=== PATIENT | male | born 1955 | race Caucasian/White ===

== ENCOUNTER 2019-08-06 09:55 | Outpatient (CLI) | payer OTHER, SELFPAY ==
--- NOTE | ~2019-08-06 | XR_ITS ---
XR shoulder LT min 2V 08/06/2019 10:37 Indication: Left shoulder pain Procedure: 4 views left shoulder Comparison: No prior studies for comparison. Findings: No fracture or traumatic malalignment. No significant soft tissue abnormality. No radiopaqu e foreign bodies. No significant joint space narrowing. Impression: 1: No acute bone or joint abnormality. Reviewed, dictated and finalized at location A. Impression: 1: No acute bone or joint abnormality.
--- NOTE | ~2019-08-06 | XR_ITS ---
XR hand RT min 3V, XR wrist RT min 3V 08/06/2019 10:38 Indication: Ganglion cyst of the right wrist Procedure: 3 views right hand and 4 views right wrist Comparison: No prior studies for comparison. Findings: There is mild-moderate polyarticular osteoarthritis. No fracture or traumatic malalignment. No significant erosive changes. Vascular calcifications are present. No foreign bodies. Impression: 1: Mild-moderate polyarticular osteoarthritis. Reviewed, dictated and finalized at location A. Impression: 1: Mild-moderate polyarticular osteoarthritis. Impression: 1: Mild-moderate polyarticular osteoarthritis.
== END 2019-08-06 09:56 | disposition home or self-care (01) ==
LOC: ANHIMG 10:02
PROVIDERS: PCP Family Medicine; Visit Provider Family Medicine
DX: M25.512 Pain in left shoulder (principal); M19.041 Primary osteoarthritis, right hand
CPT/HCPCS: 73030; 73110; 73130

== ENCOUNTER 2024-01-01 07:28 | Inpatient (IN) | payer MEDICARE, SELFPAY ==
[2024-01-01] VITALS (11 sets, daily range): BP systolic 121–170; BP diastolic 67–99; PULSE 89–99; RESP 14–20; TEMP 36.6–36.7; O2SAT 96–100; BMI 29.1
--- NOTE | ~2024-01-01 | US_ITS ---
Limited ABDOMINAL ULTRASOUND Ordering provider: John aNthan MD History: . Pancreatitis . Comparison: None. FINDINGS: LIVER: Normal size. Increased echogenicity with fat infiltration is noted. No focal hepatic lesions o r perihepatic fluid collections are identified. Cyst is seen in the right lobe measuring 3 x 2.7 x 3. 3 cm. Another cystic lesion is seen inferior to the previous one which measures 2.7 x 2.5 x 2.3 cm. T he possibility that this cyst to be renal is less likely. Portal vein flow is normal. GALLBLADDER: Unremarkable. No evidence for stones, sludge, gallbladder wall thickening or pericholecy stic fluid collections. Wall thickness is 0.4 cm. A negative sonographic Zarate's sign was noted. BILIARY DUCTS: No evidence for intra or extrahepatic biliary dilation. Common bile duct measures 5 mm in diameter which is within normal limits. PANCREAS: Not well demonstrated. . UPPER ABDOMINAL AORTA: Normal in caliber. Proximal aorta measures 1.7 cm. IVC: Patent. FREE FLUID: None. IMPRESSION: Hepatic cysts. Fat infiltration of the liver. Reviewed, dictated and finalized at location A.
--- NOTE | ~2024-01-01 | CT_ITS ---
EXAMINATION: CT abdomen pelvis wo con DATE: 01/01/2024 08:33 INDICATION: Central abdominal pain. TECHNIQUE: Computed tomography (CT) of the abdomen and pelvis was performed without intravenous contr ast. Automated exposure control and iterative reconstruction technique were employed. The dose-length product was 733.50 mGy-cm. COMPARISON: None. FINDINGS: The visualized portions of the lung bases demonstrate mild atelectasis. No pleural effusion . The heart size is normal. There are coronary artery calcifications. No pericardial effusion. There is a small sliding hiatal hernia. There are cysts in the liver measuring up to 3.7 cm. The gallbladde r and spleen are normal. There are calcifications in the pancreas, consistent with chronic pancreatit is. There is fat stranding and fluid around the pancreas, consistent with acute pancreatitis. The adr enal glands and left kidney are normal. There is an 8 mm cyst in right kidney. The prostate is mildly enlarged. There are no dilated loops of bowel. The appendix is normal. There is calcified atheroscle rosis of the aorta and many of the other arteries. There are no pathologically enlarged lymph nodes. There is no free intraperitoneal fluid. There is severe lower lumbar spondylosis. IMPRESSION: 1. Acute interstitial pancreatitis superimposed on chronic pancreatitis. Reviewed, dictated and finalized at location A.
[2024-01-01 07:52] LABS: Basophils Absolute Auto 0.1 K/mm3 (0.0-0.1); Basophils Percent Auto 0.5 % (0.2-1.2); Eosinophils Absolute Auto 0.3 K/mm3 (0-0.3); Eosinophils Percent Auto 2.4 % (0-4.4); Hemoglobin 16.4 g/dL (14.0-18.0); Immature Granulocyte Percent A 0.9 % (0-0.5); Lymphocytes Absolute Auto 1.92 K/mm3 (0.9-3.2); Lymphocytes Percent Auto 16.9 % (18.3-44.2); Mean Corpuscular HGB Conc 32.8 g/dl (32-36); Mean Corpuscular Hemoglobin 29.7 pg (26-34); Mean Corpuscular Volume 90.6 fl (80-100); Mean Platelet Volume 9.2 fl (7.4-10.4); Monocytes Absolute Auto 0.9 K/mm3 (0.1-0.6); Monocytes Percent Auto 7.8 % (2.6-8.5); Neutrophils Absolute Auto 8.1 K/mm3 (1.3-6.7); Neutrophils Percent Auto 71.5 % (45.5-73.1); Platelet Count Result 318 k/mm3 (150-375); Red Blood Count 5.52 M/mm3 (4.6-6.20); Red Cell Distribution Width 13.8 % (11.5-14.5); White Blood Count 11.3 K/mm3 (4.5-10.0)
[2024-01-01 08:04] LABS: Alanine Aminotransferase 6 U/L (6-50); Albumin Level 4.6 g/dL (3.5-5.1); Alkaline Phosphatase 76 U/L (38-126); Anion Gap 10 mmol/L (4-12); Aspartate Amino Transferase 23 U/L (17-59); Bilirubin,Total 0.6 mg/dL (0.2-1.3); Blood Urea Nitrogen 18 mg/dL (9-20); Calcium 9.3 mg/dL (8.4-10.2); Carbon Dioxide 28 mmol/L (22-30); Chloride 97 mmol/L (98-107); Estimated CRCL calculation 66 ml/min; Estimated Glomerular Filt Rate > 60; Glucose 142 mg/dL (65-110); Potassium 4.5 mmol/L (3.4-5.0); Sodium 135 mmol/L (137-145)
[2024-01-01 08:08] LABS: Add Urine Microscopic? YES; Appearance Urine Clear (Clear); Bacteria Urine None Seen /hpf; Bilirubin Urine Negative (Negative); Blood Urine Negative (Negative); Color Urine Yellow (Yellow); Glucose Urine UA Negative (Negative); Ketones Urine Trace mg/dL (Negative); Leukocyte Esterase Ur Negative LEU/UL (Negative); Nitrate Urine Negative (Negative); Non Pathogenic Casts 0-2; Protein Urine Trace mg/dL (Negative); RBC Urine 0-2 /hpf (0-2); Specific Grav Ur 1.021 (1.001-1.035); Squamous Epithelial Cell Urine None Seen /hpf (Few); WBC Urine 0-5 /hpf (0-3); pH Urine 5.5 (5.0-9.0)
--- NOTE | 2024-01-01 08:09 | ECG_ITS ---
Test Date: 2024-01-01 08:48:25 Measurements Intervals [place] Rate: 93 P: 43 NE: 207 QRS: -79 QRSD: 149 T: 19 QT: 372 QTc: 465 Interpretive Statements SINUS RHYTHM BORDERLINE AV CONDUCTION DELAY RIGHT BUNDLE BRANCH BLOCK LEFT ANTERIOR FASCICULAR BLOCK BASELINE ARTIFACT- I, III, AVR, AVL ABNORMAL ECG No previous ECG available for comparison Electronically Signed On 01-01-2024 09:31:41 CDT by Floyd Mondragon D.O.
[2024-01-01] MEDS: ONDANSETRON INJ 4 MG/2 ML VIAL IV PUSH ×3 (08:20→21:28)
[2024-01-01] MEDS: FAMOTIDINE 20 MG/2 ML VIAL IV PUSH (08:20)
[2024-01-01] MEDS: HYDROmorphone HCL INJ (*CRX) 1 MG/ML SYR IV PUSH (08:20)
[2024-01-01] MEDS: SODIUM CHLORIDE 0.9% IV 2,500 ML 999 ML IV CONT (08:26)
[2024-01-01 08:38] LABS: Lactic Acid Reflex 1.7 mmol/L (0.7-2.0)
[2024-01-01 08:45] LABS: Lipase 24150 U/L (23-300)
[2024-01-01] MEDS: KETOROLAC 15 MG/ML VIAL (*BKC) IV PUSH (09:48)
[2024-01-01] MEDS: HYDROmorphone HCL INJ (*CRX) 1 MG/ML SYR 0.5 MG IV PUSH ×3 (09:48→21:31)
[2024-01-01] MEDS: ACETAMINOPHEN 500 MG TABLET 1000 MG PO (09:49)
--- NOTE | 2024-01-01 11:46 | ED.GENADULT ---
HPI - General Adult General Chief complaint: Abdominal Pain Stated complaint: abd pain Time Seen by Provider: 01/01/24 07:38 History of Present Illness HPI narrative: This is a 68-year-old male with history of Parkinson's and pancreatitis presenting for abdominal pain. Patient states the pain started at 2:00 a.m.. Stabbing pain in the center of his abdomen is nonradiating 9.5 in intensity constant. Says he has never experienced pain like this before. No exacerbating alleviating factors. He denies fevers chills nausea vomiting or diarrhea. Last bowel movement was yesterday. No urinary symptoms. Related Data Home Medications Medication Instructions Recorded Confirmed meloxicam 15 mg tablet 15 mg PO DAILY 09/30/20 01/31/23 Allergies Allergy/AdvReac Type Severity Reaction Status Date / Time Iodine and Iodide Containing Allergy Severe Anaphylaxis Verified 01/01/24 07:29 Produc iohexol Allergy Anaphylaxis Verified 01/01/24 07:31 [From contrast - CT, X-RAY] CODIENE AdvReac Unknown NAUSEA Uncoded 01/01/24 07:29 [facility] Past Medical History Medical History Arthritis Pain in both knees Social History Social History Smoking status: Never smoker Substance use: never Do You Feel Safe in your Home?: Yes Lack of Transportation: No Lack of Food: Never True Current Housing: I Have Housing Concerned About Future Housing: No Difficulty Paying Gas/Electric Bills: No Difficulty Paying for Meds: No Currently Unemployed: No Education: High School Diploma/GED Difficulty w/ Childcare or Family Care: No Exam Narrative: APPEARANCE: No apparent distress. Head: atraumatic. EYES: EOMI, NOSE: Atraumatic NECK: Trachea midline RESPIRATORY: No increased rate of breathing, CTAB CARDIOVASCULAR: RRR, ABDOMINAL: Mildly distended, tender in the epigastric area without guarding or rebound MUSCULOSKELETAl: No obvious deformities NEURO: Alert. Moving 4/4 extremities SKIN:: Warm, dry. Normal color PSYCHIATRIC: Normal affect Course Vital Signs Vital signs: Vital Signs Temperature 97.9 F 01/01/24 07:29 Pulse Rate 93 01/01/24 07:29 Respiratory Rate 20 01/01/24 07:29 Blood Pressure 152/89 H 01/01/24 07:29 Pulse Oximetry 99 01/01/24 07:29 Oxygen Delivery Room Air 01/01/24 07:29 Temperature 97.9 F 01/01/24 07:29 Pulse Rate 96 01/01/24 08:37 Respiratory Rate 18 01/01/24 08:37 Blood Pressure 134/87 01/01/24 08:37 Pulse Oximetry 96 01/01/24 08:37 Oxygen Delivery Room Air 01/01/24 07:29 Medical Decision Making MDM Narrative Medical decision making narrative: -Course: 68-year-old male Parkinson's history pancreatitis abdominal pain. CT showed acute on chronic pancreatitis. Lipase elevated at 24,000 four thousand. Patient given IV fluids and pain control. Will be admitted the hospital for further management. -DDX includes but is not limited to: Pancreatitis, gastritis small-bowel obstruction peptic ulcer disease, gallbladder disease -Co-morbidities complicating care: Parkinson's, pancreatitis -Consults: Marshall Hyatt -independent interpretation studies: Lipase 24,000 Other labs within normal limits, imaging reviewed -Interventions: 2500 cc normal saline, Dilaudid Toradol Tylenol Pepcid -Shared decision making / Disposition: Admitted Vital Signs Vital Signs: Vital Signs Temperature 97.9 F 01/01/24 07:29 Pulse Rate 93 01/01/24 07:29 Respiratory Rate 20 01/01/24 07:29 Blood Pressure 152/89 H 01/01/24 07:29 Pulse Oximetry 99 01/01/24 07:29 Oxygen Delivery Room Air 01/01/24 07:29 Temperature 97.9 F 01/01/24 07:29 Pulse Rate 96 01/01/24 08:37 Respiratory Rate 18 01/01/24 08:37 Blood Pressure 134/87 01/01/24 08:37 Pulse Oximetry 96 01/01/24 08:37 Oxygen Delivery Room Air 01/01/24 07:29
--- NOTE | 2024-01-01 12:45 | ADMGEN ---
This patient, Jitendra Gardner, was admitted to Medical Room 244-. Patient/family oriented to hospital policies and general routines including ID bracelet, bed and alarms, visiting hours, pain management, procedures, bathroom and other care routines, personal items, smoking policy, room service/diet, and visiting hours. Information on how to activate the Rapid Response Team has been discussed. Patient/Family are encouraged to report perceived risks to care and to ask questions if they do not understand what they are told or what they should do.
[2024-01-01] MEDS: LACTATED RINGERS 1,000 ML 100 ML IV CONT (13:53)
--- NOTE | 2024-01-01 14:15 | PM.IMHP ---
H&P: HPI History of Present Illness Date/Time: 01/01/24 14:00 Chief Complaint: Abdominal pain. Narrative: This is a pleasant 68-year-old male with history of pancreatitis and Parkinson's disease who presented to the emergency department for evaluation of abdominal pain. The patient provides the following history. He had pizza and fruit cocktail for dinner last night and went to bed in his usual state of health. At around 02:00 he was awakened from sleep with severe, nonradiating sharp pain in the epigastric region. At its worst he rates the pain 9.5/10. He had some nausea with that as well. He denies significant aggravating or alleviating factors. He had one episode of pancreatitis before but this pain seems to be worse. He denies alcohol abuse, gallbladder disease, hypertriglyceridemia, and recent changes in medications. He also denies fever, sweats, chest pain, shortness of breath, vomiting, hematemesis, melena, hematochezia, and dysuria. In the ED: He was afebrile on arrival with stable vital signs. Labs are significant for WBC count of 11.3, sodium 135, lactic acid 1.7, lipase 24,150. CT of the abdomen and pelvis showed acute interstitial pancreatitis superimposed on chronic pancreatitis. He received 2 L normal saline bolus and hydromorphone he is being admitted in this setting for further treatment. Review of Systems Review of Systems: 12 systems were reviewed and are negative except for as per HPI. [facility] Past Medical History Medical History (Updated 01/01/24 @ 20:48 by Deb Odell PA-C) Arthritis Chronic pancreatitis Hearing loss Bilateral hearing aids. Parkinson's Disease Family History Family History Mother Cerebrovascular accident Father Abdominal malignancy Sibling Throat cancer Social History Social History Social History: Surrogate medical decision maker: Gisele Gardner, spouse. Code status: Full code. Smoking status: Never smoker Alcohol intake: never Substance use: never Substance use type: does not use Do You Feel Safe in your Home?: Yes Lack of Transportation: No Lack of Food: Never True Current Housing: I Have Housing Concerned About Future Housing: No Difficulty Paying Gas/Electric Bills: No Difficulty Paying for Meds: No Currently Unemployed: No Education: High School Diploma/GED Difficulty w/ Childcare or Family Care: No Spiritual care concerns: No Meds Home Medications and Allergies Home Medications Medication Instructions Recorded Confirmed Type meloxicam 15 mg tablet 15 mg PO DAILY 09/30/20 01/01/24 History carbidopa 25 mg-levodopa 100 mg See Rx Instructions .Route 12/12/23 01/01/24 Rx tablet .COMPLEX #720 tabs amantadine HCl 100 mg capsule 100 mg PO BID 01/01/24 01/01/24 History amitriptyline 25 mg tablet 25 mg PO HS 01/01/24 01/01/24 History carbidopa ER 50 mg-levodopa 200 mg 1 tablet PO HS 01/01/24 01/01/24 History tablet,extended release Allergies Allergy/AdvReac Type Severity Reaction Status Date / Time Iodine and Iodide Containing Allergy Severe Anaphylaxis Verified 01/01/24 13:18 Produc iohexol Allergy Anaphylaxis Verified 01/01/24 13:18 [From contrast - CT, X-RAY] codeine AdvReac Unknown Nausea Verified 01/01/24 15:06 Vital Signs Vital Signs - 24 hr 01/01/24 07:29 01/01/24 08:37 01/01/24 09:16 Temperature 97.9 F Pulse Rate 93 96 96 Respiratory Rate 20 18 16 Blood Pressure 152/89 H 134/87 142/97 H Pulse Oximetry 99 96 99 Oxygen Delivery Room Air 01/01/24 09:45 01/01/24 09:54 01/01/24 11:01 Temperature Pulse Rate 99 98 96 Respiratory Rate 14 16 14 Blood Pressure 170/99 H 121/81 Pulse Oximetry 98 Oxygen Delivery 01/01/24 11:16 01/01/24 11:46 01/01/24 12:01 Temperature Pulse Rate 94 93 96 Respiratory Rate 17 14 18 Blood Pressure 141/97 H 137/89 154/8
[2024-01-01] MEDS: SODIUM CHLORIDE 0.9% IV 1,000 ML 150 ML IV CONT ×2 (15:44→22:25)
[2024-01-01] MEDS: CARBIDOPA/LEVODOPA 25/100 MG TABLET 2 TABLET BY MOUTH ×2 (15:44→18:46)
--- NOTE | 2024-01-01 16:34 | WPDGICN ---
Assessment and Plan Assessment and plan (1) Acute pancreatitis: Code(s): K85.90 - Acute pancreatitis without necrosis or infection, unspecified Status: Acute Assessment and Plan: npo, iv fluids, pain control normal GB, no alcohol check TG level apparently ? chronic pancreatitis but only had one episode, denies loose stool in fact he normally has constipation (2) Upper abdominal pain: Code(s): R10.10 - Upper abdominal pain, unspecified Status: Acute (3) Parkinson's Disease: Code(s): G20 - Parkinson's disease Status: Acute GI Consult Note Consult date/time: 01/01/24 16:34 Reason for consult: pancreatitis HPI: Jitendra Gardner is a 68 year old male with history of pancreatitis (only episode was in 2018) and Parkinson's disease who presented to the emergency department for evaluation of abdominal pain. New onset of severe, nonradiating stabbing pain in the epigastric early this morning, no vomiting. He denies alcohol use, never had EGD. Still with pain. ER showed WBC count of 11.3, sodium 135, lactic acid 1.7, lipase 24,150. CT of the abdomen and pelvis showed acute interstitial pancreatitis superimposed on chronic pancreatitis, normal GB. He is npo, getting iv fluids and admitted to hospital, liver enzymes normal. Review of Systems Constitutional: Constitutional: Denies headache(s) and Denies weakness Eyes: Eyes: Denies blurry vision ENT: Reports Normal hearing present, Denies headache(s) and Denies neck pain Cardiovascular: Cardiovascular: Denies chest pain and Denies dyspnea Respiratory: Respiratory: Denies dyspnea Gastrointestinal: Gastrointestinal: Reports no additional gastrointestinal complaints Genitourinary: Genitourinary: Denies dysuria Musculoskeletal: Musculoskeletal: Denies neck pain Integumentary/Breasts: Skin/Breast: Denies dry skin Neurologic: Reports Normal hearing present, Denies headache(s) and Denies weakness Psychiatric: Psychiatric: Denies anxiety Endocrine: Endocrine: Denies change in body appearance Hematologic/Lymphatic: Hematologic/Lymphatic: Denies easy bleeding Allergic/Immunologic: Allergic/Immunologic: Denies urticaria PMFSH Past Medical History Medical History (Updated 01/01/24 @ 16:38 by Serjio Martin MD) Arthritis Chronic pancreatitis Parkinson's Disease Upper abdominal pain Family History Family History Mother Cerebrovascular accident Father Abdominal malignancy Sibling Throat cancer Social History Social History (Updated 01/01/24 @ 14:33 by Deb Odell PA-C) Social History: Surrogate medical decision maker: Gisele Gardner, spouse. Code status: Full code. Smoking status: Never smoker Alcohol intake: never Substance use: never Substance use type: does not use Do You Feel Safe in your Home?: Yes Lack of Transportation: No Lack of Food: Never True Current Housing: I Have Housing Concerned About Future Housing: No Difficulty Paying Gas/Electric Bills: No Difficulty Paying for Meds: No Currently Unemployed: No Education: High School Diploma/GED Difficulty w/ Childcare or Family Care: No Spiritual care concerns: No Meds Home Medications and Allergies Home Medications Medication Instructions Recorded Confirmed Type meloxicam 15 mg tablet 15 mg PO DAILY 09/30/20 01/01/24 History carbidopa 25 mg-levodopa 100 mg See Rx Instructions .Route 12/12/23 01/01/24 Rx tablet .COMPLEX #720 tabs amantadine HCl 100 mg capsule 100 mg PO BID 01/01/24 01/01/24 History amitriptyline 25 mg tablet 25 mg PO HS 01/01/24 01/01/24 History carbidopa ER 50 mg-levodopa 200 mg 1 tablet PO HS 01/01/24 01/01/24 History tablet,extended release Allergies Allergy/AdvReac Type Severity Reaction Status Date / Time Iodine and Iodide Containing Allergy Severe Anaphylaxis Verified 01/01/24 13:18 Produc iohexo
[2024-01-01] MEDS: AMANTADINE HCL 100 MG CAPSULE PO (21:31)
[2024-01-01] MEDS: AMITRIPTYLINE HCL 25 MG TABLET PO (21:31)
[2024-01-01] MEDS: CARBIDOPA/LEVODOPA 25/100 MG CR TABLET 1 TABLET PO (21:31)
--- NOTE | 2024-01-02 00:49 | PC.NURSE ---
Pt assessed for urinary retention per provider order. Bladder scan reading 170ml, pt voided 200ml immediately following scan.
[2024-01-02] MEDS: ONDANSETRON INJ 4 MG/2 ML VIAL IV PUSH ×3 (03:34→20:51)
[2024-01-02] MEDS: HYDROmorphone HCL INJ (*CRX) 1 MG/ML SYR 0.5 MG IV PUSH ×3 (03:34→15:52)
[2024-01-02] MEDS: SODIUM CHLORIDE 0.9% IV 1,000 ML 150 ML IV CONT (04:42)
[2024-01-02 04:49] VITALS: BP 114/74; PULSE 94; RESP 17; TEMP 36.9; O2SAT 96
[2024-01-02 05:43] LABS: Mean Corpuscular HGB Conc 32.6 g/dl (32-36); Mean Corpuscular Hemoglobin 29.9 pg (26-34); Mean Corpuscular Volume 91.9 fl (80-100); Mean Platelet Volume 9.1 fl (7.4-10.4); Platelet Count Result 224 k/mm3 (150-375); Red Blood Count 4.68 M/mm3 (4.6-6.20); White Blood Count 10.3 K/mm3 (4.5-10.0)
[2024-01-02 05:56] LABS: Albumin Level 3.3 g/dL (3.5-5.1); Alkaline Phosphatase 65 U/L (38-126); Anion Gap 7 mmol/L (4-12); Aspartate Amino Transferase 18 U/L (17-59); Bilirubin,Total 0.9 mg/dL (0.2-1.3); Blood Urea Nitrogen 16 mg/dL (9-20); Calcium 7.9 mg/dL (8.4-10.2); Carbon Dioxide 26 mmol/L (22-30); Chloride 102 mmol/L (98-107); Estimated CRCL calculation 83 ml/min; Estimated Glomerular Filt Rate > 60; Glucose 98 mg/dL (65-110); Magnesium 1.6 mg/dL (1.6-2.3); Sodium 135 mmol/L (137-145); Triglycerides 81 mg/dL (<150)
[2024-01-02 06:59] LABS: Hemoglobin A1C 5.6 % (<5.7)
[2024-01-02 07:08] LABS: Alanine Aminotransferase < 6 U/L (6-50); Lipase 5309 U/L (23-300)
--- NOTE | 2024-01-02 07:47 | PM.IMPN ---
Progress Note: A&P Assessment and Plan (1) Acute pancreatitis: Code(s): K85.90 - Acute pancreatitis without necrosis or infection, unspecified Status: Acute Assessment and Plan: Patient reports with epigastric pain waking him from sleep. Unclear inciting etiology. Reports 1 previous episode of pancreatitis. CT abdomen and pelvis shows acute interstitial pancreatitis superimposed on chronic pancreatitis. Lipase 24,150 Normal gallbladder, no alcohol abuse, normal triglycerides. Unclear etiology. He was started on amantadine and amitriptyline 6 months ago. Yeni has a risk of pancreatitis in less than 2% of patients. Possibly related?--unlikely. NPO---trial clears today Normal saline at 100 mL an hour Pain control with Dilaudid 0.5 mg IV push q.3 hours, Zofran 4 mg for nausea GI was consulted and recs are appreciated (2) Parkinson's Disease: Code(s): G20 - Parkinson's disease Status: Acute Assessment and Plan: Continue with carbidopa levodopa and amantadine Subjective Date/time seen: 01/02/24 07:47 Interval history: No acute events overnight. He is having pain 5-6/10 at rest and 10/10 with activity. Intermittently nauseated. He has been taking Zofran before his medications and this seems to help. He wants to trial some clear liquids today. His only new medications are amantadine and amitriptyline which were started 6 months ago. No over the counter supplements reported. Review of Systems Review of Systems: 12 systems were reviewed and are negative except for as per HPI. All systems reviewed & are unremarkable except as noted in HPI and below Exam Narrative: General: appears uncomfortable, in no acute distress Respiratory: breathing is unlabored with even chest rise/fall, lungs are clear without wheezing, rhonchi, and crackles Cardiovascular: Rate and rhythm regular, normal s1s2, no murmur Abdomen: Soft, round, distended, moderately tender to RUQ, mid-epigastrium, active bowel sounds Extremities: No cyanosis, edema, clubbing. Pulses 2/2 Neuro: A&O x 4, flat affect Skin: Warm, dry, intact Objective Data Vital Signs Vital Signs: Vital Signs - 24 hr 01/01/24 08:37 01/01/24 09:16 01/01/24 09:45 Temperature Pulse Rate 96 96 99 Respiratory Rate 18 16 14 Blood Pressure 134/87 142/97 H Pulse Oximetry 96 99 01/01/24 09:54 01/01/24 11:01 01/01/24 11:16 Temperature Pulse Rate 98 96 94 Respiratory Rate 16 14 17 Blood Pressure 170/99 H 121/81 141/97 H Pulse Oximetry 98 99 01/01/24 11:46 01/01/24 12:01 01/01/24 14:50 Temperature 98.1 F Pulse Rate 93 96 89 Respiratory Rate 14 18 14 Blood Pressure 137/89 154/84 H 136/81 Pulse Oximetry 99 100 98 01/01/24 19:50 01/02/24 04:49 Temperature 97.8 F 98.4 F Pulse Rate 91 94 Respiratory Rate 17 17 Blood Pressure 138/67 114/74 Pulse Oximetry 97 96 Intake/Output Intake/Output: Intake & Output 12/30/23 12/31/23 01/01/24 01/02/24 23:59 23:59 23:59 23:59 Intake Total 3688 942.5 Output Total 350 200 Balance 3338 742.5 Meds/Results Medications: Active Medications Generic Name Dose Route Start Last Admin Trade Name Freq PRN Reason Stop Dose Admin Amantadine HCl 100 mg 01/01/24 21:00 01/01/24 21:31 Amantadine Hcl 100 Mg Capsule PO 100 mg Q12HR CRYSTAL Administration Amitriptyline HCl 25 mg 01/01/24 21:00 01/01/24 21:31 Amitriptyline Hcl 25 Mg Tablet PO 25 mg HS CRYSTAL Administration Carbidopa/Levodopa 2 tablet 01/01/24 15:00 01/01/24 18:46 Carbidopa/Levodopa 25/100 Mg Tablet BY MOUTH 2 tablet DAILY@0700,1100,1500,1900 CRYSTAL Administration Carbidopa/Levodopa 1 tablet 01/01/24 22:00 01/01/24 21:31 Carbidopa/Levodopa 25/100 Mg Cr Tablet PO 1 tablet DAILY@2200 CRYSTAL Administration Hydromorphone HCl 0.5 mg 01/01/24 14:34 01/02/24 03:34 Hydromorphone Hcl Inj (*Crx) 1 Mg/Ml Syr IV PUSH 0.5 mg Q3H PRN Administration Pain Rated 7-10 So
[2024-01-02] MEDS: CARBIDOPA/LEVODOPA 25/100 MG TABLET 2 TABLET BY MOUTH ×4 (07:57→18:34)
[2024-01-02] MEDS: MELOXICAM 7.5 MG TABLET 15 MG PO (09:40)
[2024-01-02] MEDS: AMANTADINE HCL 100 MG CAPSULE PO ×2 (09:40→20:47)
[2024-01-02 10:00] VITALS: O2SAT 97
[2024-01-02 14:00] VITALS: BP 134/79; PULSE 97; RESP 16; TEMP 36.7; O2SAT 97
[2024-01-02] MEDS: SODIUM CHLORIDE 0.9% IV 1,000 ML 100 ML IV CONT (15:51)
--- NOTE | 2024-01-02 16:34 | WPDGIPROGNO ---
Progress Note: A&P Assessment and Plan (1) Acute pancreatitis: Code(s): K85.90 - Acute pancreatitis without necrosis or infection, unspecified Status: Acute Assessment and Plan: idiopathic, normal liver enzymes, also normal GB pain better, start liquid diet and advance as tolerated (2) Upper abdominal pain: Code(s): R10.10 - Upper abdominal pain, unspecified Status: Acute Assessment and Plan: improving (3) Parkinson's Disease: Code(s): G20 - Parkinson's disease Status: Acute Subjective Date/time seen: 01/02/24 16:34 Interval history: less pain and more comfortable today Review of Systems Review of Systems: All systems reviewed & are unremarkable except as noted in HPI and below Exam Const: General: comfortable and no acute distress HENMT: Face/Nose/Sinus: Normal nares present Eyes: General: appearance normal, both eyes and all related structures Neck: Neck: supple Resp: Auscultation: clear to auscultation bilaterally Cardio: Rate: regular rate Rhythm: regular rhythm GI: Inspection: non-distended GI Palp: Yes Soft to palpation and Yes Tenderness to palpation present (GI) (ttp in epigastric, no rebound) Auscultation: normal bowel sounds Skin: General skin exam: no rashes or lesions noted Neuro: Speech: normal speech Other: + tremors Extrem: General: normal to inspection Psych: Mental Status: mental status grossly normal Objective Data Vital Signs Vital Signs: Vital Signs - 24 hr 01/01/24 19:50 01/02/24 04:49 01/02/24 08:45 Temperature 97.8 F 98.4 F Pulse Rate 91 94 Respiratory Rate 17 17 Blood Pressure 138/67 114/74 Pulse Oximetry 97 96 Oxygen Delivery Room Air Fraction of Inspired Oxygen 01/02/24 10:00 01/02/24 14:00 Temperature 98.1 F Pulse Rate 97 Respiratory Rate 16 Blood Pressure 134/79 Pulse Oximetry 97 97 Oxygen Delivery Fraction of Inspired Oxygen 21 Intake/Output Intake/Output: Intake & Output 12/30/23 12/31/23 01/01/24 01/02/24 23:59 23:59 23:59 23:59 Intake Total 3688 2182.5 Output Total 350 200 Balance 3338 1982.5 Meds/Results Medications: Active Medications Generic Name Dose Route Start Last Admin Trade Name Freq PRN Reason Stop Dose Admin Amantadine HCl 100 mg 01/01/24 21:00 01/02/24 09:40 Amantadine Hcl 100 Mg Capsule PO 100 mg Q12HR CRYSTAL Administration Amitriptyline HCl 25 mg 01/01/24 21:00 01/01/24 21:31 Amitriptyline Hcl 25 Mg Tablet PO 25 mg HS CRYSTAL Administration Carbidopa/Levodopa 2 tablet 01/01/24 15:00 01/02/24 15:51 Carbidopa/Levodopa 25/100 Mg Tablet BY MOUTH 2 tablet DAILY@0700,1100,1500,1900 CRYSTAL Administration Carbidopa/Levodopa 1 tablet 01/01/24 22:00 01/01/24 21:31 Carbidopa/Levodopa 25/100 Mg Cr Tablet PO 1 tablet DAILY@2200 CRYSTAL Administration Hydromorphone HCl 0.5 mg 01/01/24 14:34 01/02/24 15:52 Hydromorphone Hcl Inj (*Crx) 1 Mg/Ml Syr IV PUSH 0.5 mg Q3H PRN Administration Pain Rated 7-10 Sodium Chloride 1,000 mls @ 100 mls/hr 01/01/24 14:35 01/02/24 15:51 Normal Saline Iv IV CONT 100 mls/hr .Q10H CRYSTAL Administration Meloxicam 15 mg 01/02/24 09:00 01/02/24 09:40 Meloxicam 7.5 Mg Tablet PO 15 mg QAM CRYSTAL Administration Ondansetron HCl 4 mg 01/02/24 11:33 Ondansetron Inj 4 Mg/2 Ml Vial IV PUSH Q4H PRN Nausea Radiology Results: ITS Impressions Abdomen/Pelvis CT 01/01/24 08:40 IMPRESSION: 1. Acute interstitial pancreatitis superimposed on chronic pancreatitis. Abdomen Ultrasound 01/01/24 10:10 IMPRESSION: Hepatic cysts. Fat infiltration of the liver. Labs Labs: Laboratory Results - last 24 hr 01/02/24 05:22 WBC 10.3 H RBC 4.68 Hgb 14.0 Hct 43.0 MCV 91.9 MCH 29.9 MCHC 32.6 RDW 14.0 Plt Count 224 MPV 9.1 Sodium 135 L Potassium 4.0 Chloride 102 Carbon Dioxide 26 Anion Gap 7 BUN 1
[2024-01-02] MEDS: AMITRIPTYLINE HCL 25 MG TABLET PO (20:47)
[2024-01-02 22:00] VITALS: BP 127/80; PULSE 109; RESP 18; TEMP 36.8; O2SAT 94
[2024-01-02] MEDS: CARBIDOPA/LEVODOPA 25/100 MG CR TABLET 1 TABLET PO (22:10)
[2024-01-03] VITALS: BP 148/73; PULSE 110; RESP 18; TEMP 36.7; O2SAT 95
[2024-01-03] MEDS: HYDROmorphone HCL INJ (*CRX) 1 MG/ML SYR 0.5 MG IV PUSH ×3 (03:51→16:12)
[2024-01-03 05:24] LABS: Basophils Percent Auto 0.3 % (0.2-1.2); Eosinophils Absolute Auto 0.2 K/mm3 (0-0.3); Eosinophils Percent Auto 1.8 % (0-4.4); Hematocrit 40.8 % (42.0-52.0); Hemoglobin 13.7 g/dL (14.0-18.0); Immature Granulocyte Absolute 0.07 K/mm3 (0.00-0.031); Immature Granulocyte Percent A 0.6 % (0-0.5); Lymphocytes Absolute Auto 0.79 K/mm3 (0.9-3.2); Lymphocytes Percent Auto 6.5 % (18.3-44.2); Mean Corpuscular HGB Conc 33.6 g/dl (32-36); Mean Corpuscular Hemoglobin 30.2 pg (26-34); Mean Corpuscular Volume 89.9 fl (80-100); Mean Platelet Volume 9.4 fl (7.4-10.4); Monocytes Absolute Auto 1.4 K/mm3 (0.1-0.6); Monocytes Percent Auto 11.8 % (2.6-8.5); Neutrophils Absolute Auto 9.7 K/mm3 (1.3-6.7); Platelet Count Result 226 k/mm3 (150-375); Red Blood Count 4.54 M/mm3 (4.6-6.20); Red Cell Distribution Width 13.7 % (11.5-14.5); White Blood Count 12.2 K/mm3 (4.5-10.0)
[2024-01-03 05:40] LABS: Anion Gap 18 mmol/L (4-12); Bilirubin,Total 1.1 mg/dL (0.2-1.3); Blood Urea Nitrogen 9 mg/dL (9-20); Calcium 8.1 mg/dL (8.4-10.2); Carbon Dioxide 25 mmol/L (22-30); Chloride 90 mmol/L (98-107); Estimated CRCL calculation 83 ml/min; Estimated Glomerular Filt Rate > 60; Glucose 92 mg/dL (65-110); Magnesium 1.7 mg/dL (1.6-2.3); Potassium 3.3 mmol/L (3.4-5.0); Sodium 133 mmol/L (137-145)
[2024-01-03 05:41] LABS: Albumin Level 3.4 g/dL (3.5-5.1); Alkaline Phosphatase 65 U/L (38-126); Aspartate Amino Transferase 21 U/L (17-59)
[2024-01-03 05:47] LABS: Alanine Aminotransferase < 6 U/L (6-50)
[2024-01-03 06:00] VITALS: BP 131/83; PULSE 103; RESP 18; TEMP 37.2; O2SAT 95
[2024-01-03] MEDS: CARBIDOPA/LEVODOPA 25/100 MG TABLET 2 TABLET BY MOUTH ×4 (06:44→18:48)
[2024-01-03] MEDS: MELOXICAM 7.5 MG TABLET 15 MG PO (09:14)
[2024-01-03] MEDS: POTASSIUM CHLORIDE 20 MEQ ER TABLET 40 MEQ PO (09:14)
[2024-01-03] MEDS: AMANTADINE HCL 100 MG CAPSULE PO ×2 (09:15→21:18)
[2024-01-03 09:16] VITALS: RESP 18; O2SAT 95
[2024-01-03] MEDS: SODIUM CHLORIDE 0.9% IV 1,000 ML 100 ML IV CONT ×3 (10:01→20:01)
[2024-01-03] MEDS: polyethylene glycoL 3350 17 GM POWD.PACK PO (11:05)
[2024-01-03] MEDS: ONDANSETRON INJ 4 MG/2 ML VIAL IV PUSH ×2 (12:42→21:58)
--- NOTE | 2024-01-03 13:40 | PM.IMPN ---
Progress Note: A&P Assessment and Plan (1) Acute pancreatitis: Code(s): K85.90 - Acute pancreatitis without necrosis or infection, unspecified Status: Acute Assessment and Plan: Patient reports with epigastric pain waking him from sleep. Unclear inciting etiology. Reports 1 previous episode of pancreatitis. CT abdomen and pelvis shows acute interstitial pancreatitis superimposed on chronic pancreatitis. Lipase 24,150 Normal gallbladder, no alcohol abuse, normal triglycerides. Unclear etiology. He was started on amantadine and amitriptyline 6 months ago. [facility] has a risk of pancreatitis in less than 2% of patients. Possibly related?--unlikely. NPO---trial clears today Normal saline at 100 mL an hour Pain control with Dilaudid 0.5 mg IV push q.3 hours, Zofran 4 mg for nausea GI was consulted and recs are appreciated 01/03/2024 continued ABD pain with full diet Lipase 1256 continue with IV fluids and pain control Will continue to advance diet as tolerated (2) Parkinson's Disease: Code(s): G20 - Parkinson's disease Status: Acute Assessment and Plan: Continue with carbidopa levodopa and amantadine (3) Hypokalemia: Code(s): E87.6 - Hypokalemia Status: Acute Assessment and Plan: 3.3 replenished 40 meq Plan Code status: Full code per patient DVT prophylaxis: Lovenox Stress ulcer prophylaxis: NA PT/OT notes: NA Disposition: Patient continues admission to the medical unit for acute pancreatitis will continue with IV fluids and pain control advance diet as tolerated can likely discharge home tomorrow if tolerating oral intake. Time Spent With Patient Time with patient: 15 - 25 minutes Subjective Date/time seen: 01/03/24 13:40 Interval history: Admission: Medical Chart This is a pleasant 68-year-old male with history of pancreatitis and Parkinson's disease who presented to the emergency department for evaluation of abdominal pain. The patient provides the following history. He had pizza and fruit cocktail for dinner last night and went to bed in his usual state of health. At around 02:00 he was awakened from sleep with severe, nonradiating sharp pain in the epigastric region. At its worst he rates the pain 9.5/10. He had some nausea with that as well. He denies significant aggravating or alleviating factors. He had one episode of pancreatitis before but this pain seems to be worse. He denies alcohol abuse, gallbladder disease, hypertriglyceridemia, and recent changes in medications. He also denies fever, sweats, chest pain, shortness of breath, vomiting, hematemesis, melena, hematochezia, and dysuria. 01/02/24: No acute events overnight. He is having pain 5-6/10 at rest and 10/10 with activity. Intermittently nauseated. He has been taking Zofran before his medications and this seems to help. He wants to trial some clear liquids today. His only new medications are amantadine and amitriptyline which were started 6 months ago. No over the counter supplements reported. 01/03/2024: Assumed care Patient stated he had ABD pain after advancing diet with some nausea, lipase pending last was trending down. Will keep patient on a full liquid for now and advance as tolerated. Review of Systems Review of Systems: 12 systems were reviewed and are negative except for as per HPI. All systems reviewed & are unremarkable except as noted in HPI and below Exam Narrative: General: appears uncomfortable, in no acute distress Respiratory: breathing is unlabored with even chest rise/fall, lungs are clear without wheezing, rhonchi, and crackles Cardiovascular: Rate and rhythm regular, normal s1s2, no murmur Abdomen: Soft, round, distended, moderately tender to RUQ, mid-epigastrium, active bowel sounds Extremities: No cyanosis, edema, clubbing. Pulses 2/2 Neuro: A&O x 4, flat affect Skin: Warm, dry, intact Objective Data Vital Signs
[2024-01-03 13:43] LABS: Lipase 1256 U/L (23-300)
[2024-01-03 14:00] VITALS: BP 140/79; PULSE 101; RESP 12; TEMP 37.3; O2SAT 98
--- NOTE | 2024-01-03 14:47 | WPDGIPROGNO ---
Progress Note: A&P Assessment and Plan (1) Acute pancreatitis: Code(s): K85.90 - Acute pancreatitis without necrosis or infection, unspecified Status: Acute Assessment and Plan: idiopathic, normal liver enzymes, also normal GB pain better, tolerating full liquid diet- advance tomorrow if he continues to feel ok (2) Upper abdominal pain: Code(s): R10.10 - Upper abdominal pain, unspecified Status: Acute Assessment and Plan: improving (3) Parkinson's Disease: Code(s): G20 - Parkinson's disease Status: Acute Subjective Date/time seen: 01/03/24 14:47 Interval history: more comfortable, tolerating full liquid diet Review of Systems Review of Systems: All systems reviewed & are unremarkable except as noted in HPI and below Exam Const: General: comfortable and no acute distress HENMT: Face/Nose/Sinus: Normal nares present Eyes: General: appearance normal, both eyes and all related structures Neck: Neck: supple Resp: Auscultation: clear to auscultation bilaterally Cardio: Rate: regular rate Rhythm: regular rhythm GI: Inspection: non-distended GI Palp: Yes Soft to palpation and Yes Tenderness to palpation present (GI) (less ttp in epigastric, no rebound) Auscultation: normal bowel sounds Skin: General skin exam: no rashes or lesions noted Neuro: Speech: normal speech Other: + tremors Extrem: General: normal to inspection Psych: Mental Status: mental status grossly normal Objective Data Vital Signs Vital Signs: Vital Signs - 24 hr 01/02/24 22:00 01/03/24 00:00 01/03/24 06:00 Temperature 98.3 F 98.0 F 98.9 F Pulse Rate 109 H 110 H 103 H Respiratory Rate 18 18 18 Blood Pressure 127/80 148/73 H 131/83 Pulse Oximetry 94 95 95 Oxygen Delivery 01/03/24 09:16 Temperature Pulse Rate Respiratory Rate 18 Blood Pressure Pulse Oximetry 95 Oxygen Delivery Room Air Intake/Output Intake/Output: Intake & Output 12/31/23 01/01/24 01/02/24 01/03/24 23:59 23:59 23:59 23:59 Intake Total 3688 2932.5 2275 Output Total 350 1150 1290 Balance 3338 1782.5 985 Meds/Results Medications: Active Medications Generic Name Dose Route Start Last Admin Trade Name Freq PRN Reason Stop Dose Admin Amantadine HCl 100 mg 01/01/24 21:00 01/03/24 09:15 Amantadine Hcl 100 Mg Capsule PO 100 mg Q12HR CRYSTAL Administration Amitriptyline HCl 25 mg 01/01/24 21:00 01/02/24 20:47 Amitriptyline Hcl 25 Mg Tablet PO 25 mg HS CRYSTAL Administration Carbidopa/Levodopa 2 tablet 01/01/24 15:00 01/03/24 10:53 Carbidopa/Levodopa 25/100 Mg Tablet BY MOUTH 2 tablet DAILY@0700,1100,1500,1900 CRYSTAL Administration Carbidopa/Levodopa 1 tablet 01/01/24 22:00 01/02/24 22:10 Carbidopa/Levodopa 25/100 Mg Cr Tablet PO 1 tablet DAILY@2200 CRYSTAL Administration Hydromorphone HCl 0.5 mg 01/01/24 14:34 01/03/24 12:42 Hydromorphone Hcl Inj (*Crx) 1 Mg/Ml Syr IV PUSH 0.5 mg Q3H PRN Administration Pain Rated 7-10 Sodium Chloride 1,000 mls @ 100 mls/hr 01/01/24 14:35 01/03/24 10:01 Normal Saline Iv IV CONT 100 mls/hr .Q10H CRYSTAL Administration Meloxicam 15 mg 01/02/24 09:00 01/03/24 09:14 Meloxicam 7.5 Mg Tablet PO 15 mg QAM CRYSTAL Administration Ondansetron HCl 4 mg 01/02/24 11:33 01/03/24 12:42 Ondansetron Inj 4 Mg/2 Ml Vial IV PUSH 4 mg Q4H PRN Administration Nausea Polyethylene Glycol 17 gm 01/03/24 10:55 01/03/24 11:05 Polyethylene Glycol 3350 17 Gm Powd.Pack PO 17 gm QAM CRYSTAL Administration Radiology Results: ITS Impressions Abdomen/Pelvis CT 01/01/24 08:40 IMPRESSION: 1. Acute interstitial pancreatitis superimposed on chronic pancreatitis. Abdomen Ultrasound 01/01/24 10:10 IMPRESSION: Hepatic cysts. Fat infiltration of the liver. Labs Labs: Laboratory Results - last 24 hr 01/03/24 04:44 WBC 12.2 H RBC 4.54 L Hgb 13.7 L H
[2024-01-03 21:14] VITALS: O2SAT 95
[2024-01-03] MEDS: CARBIDOPA/LEVODOPA 25/100 MG CR TABLET 1 TABLET PO (21:18)
[2024-01-03] MEDS: AMITRIPTYLINE HCL 25 MG TABLET PO (21:18)
[2024-01-03 22:00] VITALS: BP 137/77; PULSE 104; RESP 18; TEMP 37; O2SAT 95
--- NOTE | 2024-01-03 23:06 | PC.NURSE ---
Pt voiding frequent, small amounts (<100ml) and c/o urgency. Pt voided 75ml, post void scan shows 19ml max retained.
--- NOTE | 2024-01-04 03:07 | WPDGIPROGNO ---
Progress Note: A&P Assessment and Plan (1) Acute pancreatitis: Code(s): K85.90 - Acute pancreatitis without necrosis or infection, unspecified Status: Acute Assessment and Plan: idiopathic, normal liver enzymes, also normal GB advance diet today (2) Upper abdominal pain: Code(s): R10.10 - Upper abdominal pain, unspecified Status: Acute Assessment and Plan: much better (3) Parkinson's Disease: Code(s): G20 - Parkinson's disease Status: Acute Subjective Date/time seen: 01/04/24 03:07 Interval history: better Review of Systems Review of Systems: All systems reviewed & are unremarkable except as noted in HPI and below Exam Const: General: comfortable and no acute distress HENMT: Face/Nose/Sinus: Normal nares present Eyes: General: appearance normal, both eyes and all related structures Neck: Neck: supple Resp: Auscultation: clear to auscultation bilaterally Cardio: Rate: regular rate Rhythm: regular rhythm GI: Inspection: non-distended GI Palp: Yes Soft to palpation and Yes Tenderness to palpation present (GI) (less ttp in epigastric, no rebound) Auscultation: normal bowel sounds Skin: General skin exam: no rashes or lesions noted Neuro: Speech: normal speech Other: + tremors Extrem: General: normal to inspection Psych: Mental Status: mental status grossly normal Objective Data Vital Signs Vital Signs: Vital Signs - 24 hr 01/03/24 06:00 01/03/24 09:16 01/03/24 14:00 Temperature 98.9 F 99.1 F Pulse Rate 103 H 101 H Respiratory Rate 18 18 12 Blood Pressure 131/83 140/79 Pulse Oximetry 95 95 98 Oxygen Delivery Room Air 01/03/24 22:00 01/03/24 21:14 Temperature 98.6 F Pulse Rate 104 H Respiratory Rate 18 Blood Pressure 137/77 Pulse Oximetry 95 95 Oxygen Delivery Room Air Intake/Output Intake/Output: Intake & Output 01/01/24 01/02/24 01/03/24 01/04/24 23:59 23:59 23:59 23:59 Intake Total 3688 2932.5 4315 Output Total 350 1150 2814 300 Balance 3338 1782.5 1501 -300 Meds/Results Medications: Active Medications Generic Name Dose Route Start Last Admin Trade Name Freq PRN Reason Stop Dose Admin Amantadine HCl 100 mg 01/01/24 21:00 01/03/24 21:18 Amantadine Hcl 100 Mg Capsule PO 100 mg Q12HR CRYSTAL Administration Amitriptyline HCl 25 mg 01/01/24 21:00 01/03/24 21:18 Amitriptyline Hcl 25 Mg Tablet PO 25 mg HS CRYSTAL Administration Carbidopa/Levodopa 2 tablet 01/01/24 15:00 01/03/24 18:48 Carbidopa/Levodopa 25/100 Mg Tablet BY MOUTH 2 tablet DAILY@0700,1100,1500,1900 CRYSTAL Administration Carbidopa/Levodopa 1 tablet 01/01/24 22:00 01/03/24 21:18 Carbidopa/Levodopa 25/100 Mg Cr Tablet PO 1 tablet DAILY@2200 CRYSTAL Administration Hydromorphone HCl 0.5 mg 01/01/24 14:34 01/03/24 16:12 Hydromorphone Hcl Inj (*Crx) 1 Mg/Ml Syr IV PUSH 0.5 mg Q3H PRN Administration Pain Rated 7-10 Sodium Chloride 1,000 mls @ 100 mls/hr 01/01/24 14:35 01/03/24 20:01 Normal Saline Iv IV CONT 100 mls/hr .Q10H CRYSTAL Administration Meloxicam 15 mg 01/02/24 09:00 01/03/24 09:14 Meloxicam 7.5 Mg Tablet PO 15 mg QAM CRYSTAL Administration Ondansetron HCl 4 mg 01/02/24 11:33 01/03/24 21:58 Ondansetron Inj 4 Mg/2 Ml Vial IV PUSH 4 mg Q4H PRN Administration Nausea Polyethylene Glycol 17 gm 01/03/24 10:55 01/03/24 11:05 Polyethylene Glycol 3350 17 Gm Powd.Pack PO 17 gm QAM CRYSTAL Administration Radiology Results: ITS Impressions Abdomen/Pelvis CT 01/01/24 08:40 IMPRESSION: 1. Acute interstitial pancreatitis superimposed on chronic pancreatitis. Abdomen Ultrasound 01/01/24 10:10 IMPRESSION: Hepatic cysts. Fat infiltration of the liver. Labs Labs: Laboratory Results - last 24 hr 01/03/24 04:44 WBC 12.2 H RBC 4.54 L Hgb 13.7 L Hct 40.8 L MCV 89.9 MCH 30.2 MCHC 33.6 RDW 13.7 Plt Count
[2024-01-04] MEDS: ONDANSETRON INJ 4 MG/2 ML VIAL IV PUSH (05:46)
[2024-01-04] MEDS: SODIUM CHLORIDE 0.9% IV 1,000 ML 100 ML IV CONT (05:47)
[2024-01-04 05:54] LABS: Basophils Percent Auto 0.3 % (0.2-1.2); Eosinophils Absolute Auto 0.2 K/mm3 (0-0.3); Eosinophils Percent Auto 1.4 % (0-4.4); Immature Granulocyte Absolute 0.07 K/mm3 (0.00-0.031); Immature Granulocyte Percent A 0.6 % (0-0.5); Lymphocytes Absolute Auto 0.91 K/mm3 (0.9-3.2); Lymphocytes Percent Auto 7.3 % (18.3-44.2); Mean Corpuscular HGB Conc 34.2 g/dl (32-36); Mean Corpuscular Hemoglobin 30.3 pg (26-34); Mean Corpuscular Volume 88.6 fl (80-100); Mean Platelet Volume 9.1 fl (7.4-10.4); Monocytes Absolute Auto 1.2 K/mm3 (0.1-0.6); Neutrophils Percent Auto 80.4 % (45.5-73.1); Platelet Count Result 218 k/mm3 (150-375); Red Blood Count 4.29 M/mm3 (4.6-6.20); Red Cell Distribution Width 13.6 % (11.5-14.5); White Blood Count 12.5 K/mm3 (4.5-10.0)
[2024-01-04 06:00] VITALS: BP 152/70; PULSE 100; RESP 18; TEMP 36.8; O2SAT 95
[2024-01-04 06:09] LABS: Alanine Aminotransferase < 6 U/L (6-50); Albumin Level 3.2 g/dL (3.5-5.1); Alkaline Phosphatase 64 U/L (38-126); Anion Gap 6 mmol/L (4-12); Aspartate Amino Transferase 22 U/L (17-59); Blood Urea Nitrogen 7 mg/dL (9-20); Calcium 8.2 mg/dL (8.4-10.2); Carbon Dioxide 27 mmol/L (22-30); Chloride 102 mmol/L (98-107); Estimated CRCL calculation 94 ml/min; Estimated Glomerular Filt Rate > 60; Glucose 106 mg/dL (65-110); Magnesium 1.7 mg/dL (1.6-2.3); Potassium 3.2 mmol/L (3.4-5.0); Sodium 135 mmol/L (137-145)
[2024-01-04 06:10] LABS: Lipase 208 U/L (23-300)
[2024-01-04] MEDS: CARBIDOPA/LEVODOPA 25/100 MG TABLET 2 TABLET BY MOUTH ×4 (06:20→18:44)
--- NOTE | 2024-01-04 07:09 | P.PNIM_ITS ---
Progress Note: A&P Assessment and Plan (1) Acute pancreatitis: Code(s): K85.90 - Acute pancreatitis without necrosis or infection, unspecified Status: Acute Assessment and Plan: * Patient reports with epigastric pain waking him from sleep. Unclear inciting etiology. Reports 1 previous episode of pancreatitis. CT abdomen and pelvis shows acute interstitial pancreatitis superimposed on chronic pancreatitis. * Lipase 24,150 * Normal gallbladder, no alcohol abuse, normal triglycerides. Unclear etiology. He was started on amantadine and amitriptyline 6 months ago. [facility] has a risk of pancreatitis in less than 2% of patients. Possibly related?--unlikely. * NPO---trial clears today * Normal saline at 100 mL an hour * Pain control with Dilaudid 0.5 mg IV push q.3 hours, Zofran 4 mg for nausea * GI was consulted and recs are appreciated 01/03/2024 * continued ABD pain with full diet * Lipase 1256 * continue with IV fluids and pain control * Will continue to advance diet as tolerated 01/04/24: * Lipase now 208 * Continue pain control * Advance diet as tolerated. * DC IV fluids (2) Parkinson's Disease: Code(s): G20 - Parkinson's disease Status: Acute Assessment and Plan: * Continue with carbidopa levodopa and amantadine 01/04/24: * Continue with current treatment plan (3) Hypokalemia: Code(s): E87.6 - Hypokalemia Status: Acute Assessment and Plan: * 3.3 * replenished 40 meq 01/04/24: * potassium 3.2 today * Will give 40 meq of KCL today. Time Spent With Patient Time with patient: 25 - 35 minutes Subjective Date/time seen: 01/04/24 07:09 Interval history: Interval history: This is a 68 year old male with significant past medical history of arthritis, chronic pancreatitis, hearing loss, Parkinson's disease who presented to the hospital on 01/01/24 with abdominal pain. Work up in the hospital included a CT of the Abdomen/Pelvis which revealed acute interstitial pancreatitis superimposed on chronic pancreatitis. Abdominal US revealed hepatic cysts and fat infiltration of the liver. Initial labs included Lipase 38021, WBC 11.3, Na 135, Chlor 97. UA was obtained and revealed trace ketones, otherwise unremarkable. Patient was given IV fluids, pain and nausea medications in the ER. GI was consulted. Subjective: Patient denies any fever, chills, nausea, vomiting, diarrhea, shortness of breath, chest pain. Patient endorses abdominal pain that is 6/10. He is tolerating clear liquid diet and was advanced to full liquid diet today. Labs and imaging reviewed. Review of Systems Review of Systems: 12 systems were reviewed and are negativ e except for as per HPI. All systems reviewed & are unremarkable except as noted in HPI and below Constitutional: Constitutional: Reports as per HPI and Reports no additional constitutional complaints Eyes: Eyes: Reports as per HPI and Reports no additional eye complaints ENT: Reports system reviewed and no additional complaints, except as documented and Reports as per HPI Cardiovascular: Cardiovascular: Reports as per HPI and Reports no additional cardiovascular complaints Respi
--- NOTE | 2024-01-04 07:09 | PM.IMPN ---
Progress Note: A&P Assessment and Plan (1) Acute pancreatitis: Code(s): K85.90 - Acute pancreatitis without necrosis or infection, unspecified Status: Acute Assessment and Plan: Patient reports with epigastric pain waking him from sleep. Unclear inciting etiology. Reports 1 previous episode of pancreatitis. CT abdomen and pelvis shows acute interstitial pancreatitis superimposed on chronic pancreatitis. Lipase 24,150 Normal gallbladder, no alcohol abuse, normal triglycerides. Unclear etiology. He was started on amantadine and amitriptyline 6 months ago. [facility] has a risk of pancreatitis in less than 2% of patients. Possibly related?--unlikely. NPO---trial clears today Normal saline at 100 mL an hour Pain control with Dilaudid 0.5 mg IV push q.3 hours, Zofran 4 mg for nausea GI was consulted and recs are appreciated 01/03/2024 continued ABD pain with full diet Lipase 1256 continue with IV fluids and pain control Will continue to advance diet as tolerated 01/04/24: Lipase now 208 Continue pain control Advance diet as tolerated. DC IV fluids (2) Parkinson's Disease: Code(s): G20 - Parkinson's disease Status: Acute Assessment and Plan: Continue with carbidopa levodopa and amantadine 01/04/24: Continue with current treatment plan (3) Hypokalemia: Code(s): E87.6 - Hypokalemia Status: Acute Assessment and Plan: 3.3 replenished 40 meq 01/04/24: potassium 3.2 today Will give 40 meq of KCL today. Time Spent With Patient Time with patient: 25 - 35 minutes Subjective Date/time seen: 01/04/24 07:09 Interval history: Interval history: This is a 68 year old male with significant past medical history of arthritis, chronic pancreatitis, hearing loss, Parkinson's disease who presented to the hospital on 01/01/24 with abdominal pain. Work up in the hospital included a CT of the Abdomen/Pelvis which revealed acute interstitial pancreatitis superimposed on chronic pancreatitis. Abdominal US revealed hepatic cysts and fat infiltration of the liver. Initial labs included Lipase 46379, WBC 11.3, Na 135, Chlor 97. UA was obtained and revealed trace ketones, otherwise unremarkable. Patient was given IV fluids, pain and nausea medications in the ER. GI was consulted. Subjective: Patient denies any fever, chills, nausea, vomiting, diarrhea, shortness of breath, chest pain. Patient endorses abdominal pain that is 6/10. He is tolerating clear liquid diet and was advanced to full liquid diet today. Labs and imaging reviewed. Review of Systems Review of Systems: 12 systems were reviewed and are negative except for as per HPI. All systems reviewed & are unremarkable except as noted in HPI and below Constitutional: Constitutional: Reports as per HPI and Reports no additional constitutional complaints Eyes: Eyes: Reports as per HPI and Reports no additional eye complaints ENT: Reports system reviewed and no additional complaints, except as documented and Reports as per HPI Cardiovascular: Cardiovascular: Reports as per HPI and Reports no additional cardiovascular complaints Respiratory: Respiratory: Reports as per HPI and Reports no additional respiratory complaints Gastrointestinal: Gastrointestinal: Reports as per HPI and Reports no additional gastrointestinal complaints Genitourinary: Genitourinary: Reports no additional male genitourinary complaints and Reports as per HPI Musculoskeletal: Musculoskeletal: Reports no additional musculoskeletal complaints and Reports as per HPI Integumentary/Breasts: Skin/Breast: Reports system reviewed and no additional complaints, except as docu and Reports as per HPI Neurologic: Reports system reviewed and no additional complaints, except as documented and Reports as per HPI Psychiatric: Psychiatric: Reports no additional psychiatric complaints and Reports as per HPI Exam Narrative: Ge
[2024-01-04 09:29] VITALS: RESP 18; O2SAT 95
[2024-01-04] MEDS: AMANTADINE HCL 100 MG CAPSULE PO ×2 (09:29→21:38)
[2024-01-04] MEDS: POTASSIUM CHLORIDE 20 MEQ ER TABLET 40 MEQ PO (09:29)
[2024-01-04] MEDS: polyethylene glycoL 3350 17 GM POWD.PACK PO (09:29)
[2024-01-04] MEDS: MELOXICAM 7.5 MG TABLET 15 MG PO (09:29)
[2024-01-04 13:00] VITALS: BP 146/85; PULSE 94; RESP 16; TEMP 36.9; O2SAT 96
[2024-01-04 14:00] VITALS: PULSE 94; RESP 16; O2SAT 96
[2024-01-04 21:09] VITALS: BP 158/87; PULSE 88; RESP 16; TEMP 36.4; O2SAT 99
[2024-01-04] MEDS: AMITRIPTYLINE HCL 25 MG TABLET PO (21:38)
[2024-01-04] MEDS: CARBIDOPA/LEVODOPA 25/100 MG CR TABLET 1 TABLET PO (21:38)
[2024-01-05 05:52] LABS: Basophils Absolute Auto 0.1 K/mm3 (0.0-0.1); Basophils Percent Auto 0.5 % (0.2-1.2); Eosinophils Absolute Auto 0.3 K/mm3 (0-0.3); Eosinophils Percent Auto 2.7 % (0-4.4); Hematocrit 37.1 % (42.0-52.0); Hemoglobin 12.8 g/dL (14.0-18.0); Immature Granulocyte Absolute 0.06 K/mm3 (0.00-0.031); Immature Granulocyte Percent A 0.5 % (0-0.5); Lymphocytes Absolute Auto 1.08 K/mm3 (0.9-3.2); Lymphocytes Percent Auto 9.3 % (18.3-44.2); Mean Corpuscular HGB Conc 34.5 g/dl (32-36); Mean Corpuscular Hemoglobin 30.3 pg (26-34); Mean Corpuscular Volume 87.7 fl (80-100); Mean Platelet Volume 9.9 fl (7.4-10.4); Monocytes Percent Auto 8.8 % (2.6-8.5); Neutrophils Absolute Auto 9.1 K/mm3 (1.3-6.7); Neutrophils Percent Auto 78.2 % (45.5-73.1); Platelet Count Result 254 k/mm3 (150-375); Red Blood Count 4.23 M/mm3 (4.6-6.20); Red Cell Distribution Width 13.2 % (11.5-14.5); White Blood Count 11.6 K/mm3 (4.5-10.0)
[2024-01-05 06:00] VITALS: PULSE 88; RESP 16; TEMP 37; O2SAT 100
[2024-01-05 06:05] LABS: Albumin Level 3.2 g/dL (3.5-5.1); Alkaline Phosphatase 66 U/L (38-126); Anion Gap 6 mmol/L (4-12); Aspartate Amino Transferase 22 U/L (17-59); Bilirubin,Total 0.8 mg/dL (0.2-1.3); Blood Urea Nitrogen 8 mg/dL (9-20); Calcium 8.3 mg/dL (8.4-10.2); Carbon Dioxide 28 mmol/L (22-30); Chloride 100 mmol/L (98-107); Estimated CRCL calculation 94 ml/min; Estimated Glomerular Filt Rate > 60; Glucose 102 mg/dL (65-110); Lipase 76 U/L (23-300); Magnesium 1.8 mg/dL (1.6-2.3); Potassium 3.3 mmol/L (3.4-5.0); Sodium 134 mmol/L (137-145)
[2024-01-05 06:06] LABS: Alanine Aminotransferase < 6 U/L (6-50)
[2024-01-05] MEDS: CARBIDOPA/LEVODOPA 25/100 MG TABLET 2 TABLET BY MOUTH ×2 (06:13→11:59)
[2024-01-05] MEDS: MELOXICAM 7.5 MG TABLET 15 MG PO (09:16)
[2024-01-05] MEDS: AMANTADINE HCL 100 MG CAPSULE PO (09:16)
[2024-01-05] MEDS: polyethylene glycoL 3350 17 GM POWD.PACK PO (09:17)
--- NOTE | 2024-01-05 10:30 | PM.DS ---
DS: Admitting Diagnosis Discharge Date 01/05/24 Admitting Diagnosis Acute pancreatitis Hyperglycemia Parkinson's Disease DS: Discharge Diagnosis Discharge Diagnosis (1) Acute pancreatitis: Code(s): K85.90 - Acute pancreatitis without necrosis or infection, unspecified Status: Acute (2) Parkinson's Disease: Code(s): G20 - Parkinson's disease Status: Acute (3) Hypokalemia: Code(s): E87.6 - Hypokalemia Status: Acute DS: Summary Hospital Course Reason for hospitalization: Acute pancreatitis Hyperglycemia Parkinson's Disease Hospital Course: Interval history: This is a 68 year old male with significant past medical history of arthritis, chronic pancreatitis, hearing loss, Parkinson's disease who presented to the hospital on 01/01/24 with abdominal pain. Work up in the hospital included a CT of the Abdomen/Pelvis which revealed acute interstitial pancreatitis superimposed on chronic pancreatitis. Abdominal US revealed hepatic cysts and fat infiltration of the liver. Initial labs included Lipase 90136, WBC 11.3, Na 135, Chlor 97. UA was obtained and revealed trace ketones, otherwise unremarkable. Patient was given IV fluids, pain and nausea medications in the ER. GI was consulted. Patient tolerating food and oral fluids. His abdominal pain is well controlled. He is stable for discharge at this time. He will need to follow up with primary care doctor in 1 week. Final diagnosis: Acute pancreatitis Status at Discharge Cognitive/behavioral status at discharge: alert and oriented x3 Functional status at discharge: independent ambulation Overall status at discharge: patient is progressing back to baseline Time Spent with Patient Time attestation: Total time spent providing and/or coordinating discharge services: Time spent: Greater than 30 minutes Exam Narrative: General: In no acute distress, well nourished Cardiac: Normal S1 and S2. No murmur, gallops or friction rubs, peripheral pulses intact. Respiratory: Lungs clear to auscultation, no adventitious lung sounds currently on room air Gastrointestinal: soft, mild-distended, tenderness noted mid abdomen, normoactive bowel sounds. : voiding without difficulty. Neuro: Alert and oriented x4 DS: Data Data Completed and Pending Completed studies during hospitalization: Abdomen Ultrasound Abdomen/pelvis CT Pending studies at discharge: None Labs on day of discharge: Labs from last 24 hours 01/05/24 05:15 WBC 11.6 H RBC 4.23 L Hgb 12.8 L Hct 37.1 L MCV 87.7 MCH 30.3 MCHC 34.5 RDW 13.2 Plt Count 254 MPV 9.9 Immature Gran % (Auto) 0.5 Neut % (Auto) 78.2 H Lymph % (Auto) 9.3 L Tripp % (Auto) 8.8 H Eos % (Auto) 2.7 Baso % (Auto) 0.5 Lymph # (Auto) 1.08 Tripp # (Auto) 1.0 H Eos # (Auto) 0.3 Baso # (Auto) 0.1 Abs Immat Gran (auto) 0.06 H Absolute Neuts (auto) 9.1 H Absolute Nucleated RBC 0.000 Nucleated RBC % 0.0 Sodium 134 L Potassium 3.3 L Chloride 100 Carbon Dioxide 28 Anion Gap 6 BUN 8 L Creatinine 0.70 Estim Creat Clear Calc 94 Estimated GFR > 60 Glucose 102 Calcium 8.3 L Magnesium 1.8 Total Bilirubin 0.8 AST 22 ALT < 6 L Alkaline Phosphatase 66 Total Protein 6.0 L Albumin 3.2 L Lipase 76 Procedures/Treatments: None Discharge Plan Discharge Attending physician on discharge: Max Monaco Consulting providers: Serjio Martin; Divine Sweeney Discharging Clinician: Divine Sweeney Anticipated Discharge Date/Time: 01/05/24 10:26 Patient Disposition: Home, Self-Care Activity: as tolerated Diet: as tolerated Discharge Instructions: follow up with primary care doctor in 1 week. Take Tylenol for pain as needed Patient Instructions: Pancreatitis (DC), Low Fat Diet (DC) Patient Language: Emirati Stand Alone Forms: General Discharge Information Follow-up/Referrals: Eber,TINY Manuel [Primary Care Provider
== END 2024-01-05 14:00 | disposition home or self-care (01) | DRG 440 ==
LOC: ANHED 11:53 → ANH2MED 12:12
PROVIDERS: Nurse Practitioner Acute Care; Nurse Practitioner Family; Physician Assistant; Admitting Provider Internal Medicine; Emergency Provider Emergency Medicine; PCP Physician Assistant; Visit Provider Nurse Practitioner Acute Care
DX: K85.80 Other acute pancreatitis without necrosis or infection (principal); K86.1 Other chronic pancreatitis; G20.A1 Parkinson's disease without dyskinesia, without mention of fluctuations; E87.6 Hypokalemia; R73.9 Hyperglycemia, unspecified; M19.90 Unspecified osteoarthritis, unspecified site
CPT/HCPCS: 36415; 74176; 76705; 80053; 81001; 83036; 83605; 83690; 83735; 84478; 85025; 85027; 93005; 96361; 96374; 96375; 96376; 99285; A9270; J1170; J1885; J2405; J7030; J7120